=== PATIENT | male | born 1940 | race Caucasian/White ===

== ENCOUNTER 2017-04-25 11:56 | Inpatient (IN) | payer OTHER ==
[~2017-04-25] VITALS: Ht 177.8 cm; Wt 92.6 kg
[~2017-04-25 11:56] MED LIST: 70/30 SC; ALDACTAZIDE 251 TAB PO; AMLODIPINE BESY10 MG PO; ARTIFICIAL TEAR30 M1 OPH; ASPERCREME76.5 GM TP; ASPIRIN81 M1 PO; ATARAX10 MG PO; AUGMENTIN 875 M1 TA1 PO; B12; B12,B-12,B 12500 MCG PO; BENTYL10 MG PO; CALCIPOTRIENE60 GM TP; CAPSAICIN42.5 GM TP; CENTRUM SAW PA160 MG PO; CENTRUM1 TAB PO; CEPACOL SORE T1 EAC1 MM; CIPRO500 MG PO; CLOBETASOL PROP0.05% T; CLOBETASOL PROP15 GM TP; COLACE100 MG PO; COMBIVENT RESPIM4 GM INH; COMBIVENT1 AR1 IH; COMBIVENT1 ARO IH; COUMADIN5 M1 PO; COUMADIN7.5 M1 PO; CUBICIN500 MG IV; DICYCLOMINE HCL10 MG PO; DICYCLOMINE10 MG PO; DILTIAZEM 24HR120 MG PO; ECOTRIN81 MG PO; ELIQUIS5 M1 PO; FERROUS GLUCON325 M1 PO; FLOMAX0.4 MG; FLOMAX0.4 MG PO; FLUTICASON0.05 MG/Ac NAS; HUMALOG100 U/ML SC; HUMULIN 70100 UNIT/1 SC; HUMULIN N100 U/ML SC; HUMULIN N100 UNIT/1 SQ; HYDRALAZINE HC100 MG PO; HYDROCHLOROTHIA50 MG PO; HYDROCODONE BIT1 T11 PO; HYTRIN1 M1 PO; HYTRIN10 MG PO; ISOSORBIDE MON120 MG PO; ISOSORBIDE MONO60 MG PO; K-DUR 2020 MEQ PO; K-DUR20 MEQ PO; K-TAB20 MEQ PO; KETOCONAZOLE21 TP; LASIX40 MG PO; LIPITOR80 MG PO; LISINOPRIL30 MG PO; LISINOPRIL40 MG PO; LOPRESSOR25 MG PO; Lopressor25 MG PO; METFORMIN1000 MG PO; MIRALAX POWDER17 G1 PO; MOTRIN600 MG PO; Micro K10 MEQ PO; NASAL SPRAY30 ML NAS; NORVASC10 MG PO; NORVASC5 MG PO; NOVOLIN 701 UNIT/0.0 SC; NOVOLIN N100 U/ML SC; Nizoral 2%15 GM T; POTASSIUM20 MEQ PO; PRAVASTATIN SOD80 MG PO; PRILOSEC20 MG PO; PROVENTIL0.09 MG/A1 INH; ROSUVASTATIN CA10 MG PO; SAW PALMETTO80 MG PO; TACROLIMUS 0.1% TP; TERAZOSIN HCL10 M1 PO; TOPROL XL50 M1 PO; TRAZADONE HYDR100 MG PO; TYLENOL325 M1 PO; VANCOCIN1000 MG/25 IV; VIBRA-TAB100 M1 PO; VIBRA-TAB100 MG PO; VIBRAMYCIN100 MG PO; VISTARIL25 M1 PO; VITAMIN D2400 IU PO; VITAMIN D32000 UNIT PO; VOLTAREN11 PO; XARE15TA PO; XARE20MG PO; ZESTRIL30 M1 PO; ZESTRIL40 MG PO; ZOLOFT100 MG PO; ZOSYN 3.373.375 GM/5 IV; Zestril,Prinivi40 MG PO; [UNRECOGNIZED DRUG - CODE] PO; eye drops
[2017-04-25 12:00] VITALS: BP 179/74
[2017-04-25 13:05] LABS: BASO % 0.3 % (0.0-1.0); EOS # 0.2 10*3/uL (0.0-0.4); EOS % 2.2 % (1.0-4.0); HEMATOCRIT 36.4 % (42.0-52.0); HEMOGLOBIN 12.2 g/dl (14.0-18.0); LYMPH # 1.5 10*3/uL (1.3-4.4); LYMPH % 14.6 % (27.0-41.0); MEAN CELL VOLUME 83.3 fl (80.0-94.0); MEAN CORPUSCULAR HGB 27.9 pg (27.0-31.0); MEAN CORPUSCULAR HGB CONC 33.5 g/dl (33.0-37.0); MEAN PLATELET VOLUME 11.2 fl (9.6-12.3); MONO # 0.9 10*3/uL (0.1-1.0); MONO % 8.8 % (3.0-9.0); NEUT # 7.8 10*3/uL (2.3-7.9); NEUT % 73.6 % (47.0-73.0); PLATELET COUNT AUTOMATED 143 10*3/uL (130-400); RED BLOOD COUNT 4.37 10*6/uL (4.50-5.90); WHITE BLOOD COUNT 10.6 10*3/uL (4.8-10.8)
[2017-04-25 13:18] LABS: ACT PARTIAL THROMBO TIME 27.3 SECONDS (20.8-31.5); ALBUMIN 3.1 gm/dl (3.1-4.5); ALKALINE PHOSPHATASE 61 U/L (45-117); BUN 17 mg/dl (7-24); CHLORIDE 102 mmol/L (98-107); LIPASE 55 U/L (73-393); SGOT/AST 12 IU/L (3-35); SGPT/ALT 14 U/L (12-78); SODIUM 140 mmol/L (136-145); TOTAL PROTEIN 6.5 gm/dL (6.4-8.2)
[2017-04-25 13:19] LABS: TROPONIN I < 0.015 ng/ml (<0.045)
[2017-04-25 16:04] LABS: BILIRUBIN NEGATIVE (NEGATIVE); BLOOD NEGATIVE (NEGATIVE); CLARITY CLEAR (CLEAR); COLOR YELLOW (YELLOW); GLUCOSE 2+ (NEGATIVE); KETONE TRACE (NEGATIVE); LEUKO ESTERASE NEGATIVE (NEGATIVE); NITRITE NEGATIVE (NEGATIVE); UROBILINOGEN 0.2 E.U./dl (0.2-1.0)
[2017-04-25 16:26] LABS: RBC 0-2 rbc/hpf (0-2); WBC 0-2 wbc/hpf (0-5)
[2017-04-25 20:00] VITALS: BP 121/80
[2017-04-25 20:19] VITALS: BP 169/84
[2017-04-25 20:30] VITALS: BP 196/64
[2017-04-25] MEDS ORDERED: PROSCAR5 M1 PO (21:17)
[2017-04-25] MEDS ORDERED: TAMSULOSIN HCL0.4 MG PO (21:18)
[2017-04-25] MEDS ORDERED: ATARAX,VISTARIL10 MG PO (21:20)
[2017-04-25] MEDS ORDERED: FERROUS SULFAT325 MG PO (21:25)
[2017-04-25] MEDS ORDERED: METFORMIN1000 MG PO (21:28)
[2017-04-25] MEDS ORDERED: TOPROL XL50 M1 PO (22:26)
[2017-04-25] MEDS ORDERED: CARDIZEM120 MG PO (22:26)
[2017-04-26] VITALS (9 sets, daily range): BP systolic 146–180; BP diastolic 51–72
[2017-04-26 07:19] LABS: BASO % 0.4 % (0.0-1.0); EOS # 0.2 10*3/uL (0.0-0.4); EOS % 2.6 % (1.0-4.0); HEMATOCRIT 38.2 % (42.0-52.0); HEMOGLOBIN 12.8 g/dl (14.0-18.0); LYMPH # 1.4 10*3/uL (1.3-4.4); LYMPH % 15.6 % (27.0-41.0); MEAN CELL VOLUME 82.2 fl (80.0-94.0); MEAN CORPUSCULAR HGB 27.5 pg (27.0-31.0); MEAN CORPUSCULAR HGB CONC 33.5 g/dl (33.0-37.0); MEAN PLATELET VOLUME 12.1 fl (9.6-12.3); MONO # 0.9 10*3/uL (0.1-1.0); MONO % 10.3 % (3.0-9.0); NEUT # 6.4 10*3/uL (2.3-7.9); NEUT % 70.7 % (47.0-73.0); PLATELET COUNT AUTOMATED 148 10*3/uL (130-400); RED BLOOD COUNT 4.65 10*6/uL (4.50-5.90); RED CELL DISTRI WIDTH 14.8 % (0-14.5)
[2017-04-26 07:34] LABS: CHLORIDE 98 mmol/L (98-107); POTASSIUM 3.2 mmol/L (3.5-5.1); SODIUM 137 mmol/L (136-145)
[2017-04-26 08:01] LABS: BUN 11 mg/dl (7-24); CHOLESTEROL 135 mg/dL (<200); HDL CHOLESTEROL 39 mg/dl (40-60); LDL CHOLESTEROL 58 mg/dL (9-159); PHOSPHOROUS 2.9 mg/dL (2.5-4.9); THYROID STIM HORMONE (HS) 0.859 uIU/ml (0.358-4.75); TRIGLYCERIDES 192 mg/dl (<150); VLDL CHOLESTEROL 38 mg/dL (6-40)
[2017-04-26 08:38] LABS: VITAMIN D, 25-HYDROXY 33.1 ng/mL (30-100)
[2017-04-26] MEDS ORDERED: BUPROPION HYDR100 MG PO (10:48)
[2017-04-26] MEDS ORDERED: KETOCONAZOLE S120 M1 (10:51)
[2017-04-26] MEDS ORDERED: DIPHENHYDRAMINE50 M1 PO (10:53)
[2017-04-26] MEDS ORDERED: PREDNISONE50 MG PO (10:57)
[2017-04-26] MEDS ORDERED: HUMULIN 70/30 703 M1 SC ×2 (11:00→11:01)
[2017-04-26] MEDS ORDERED: LIDOCAINE5 GM T (11:02)
[2017-04-26] MEDS ORDERED: CAVERJECT IMPU IC (11:06)
[2017-04-27 03:49] VITALS: BP 144/50
[2017-04-27 06:59] LABS: CHLORIDE 99 mmol/L (98-107); SODIUM 136 mmol/L (136-145)
[2017-04-27 07:12] LABS: BUN 22 mg/dl (7-24)
[2017-04-27 07:38] VITALS: BP 120/60
[2017-04-27 12:00] VITALS: BP 124/50
[2017-04-27 16:00] VITALS: BP 151/61
[2017-04-27 20:00] VITALS: BP 164/51
[2017-04-28] VITALS: BP 155/60
[2017-04-28 07:34] LABS: BUN 19 mg/dl (7-24); CHLORIDE 101 mmol/L (98-107); CREATININE 0.94 mg/dL (0.70-1.30); POTASSIUM 3.9 mmol/L (3.5-5.1); SODIUM 137 mmol/L (136-145)
[2017-04-28 08:00] VITALS: BP 167/50
[2017-04-28 12:00] VITALS: BP 151/48
[2017-04-28] MEDS ORDERED: HYDRALAZINE HYD50 MG PO (12:24)
[2017-04-28] MEDS ORDERED: TEST STRIPS1 EACH MC (12:25)
[2017-04-28] MEDS ORDERED: LEVEMIR100 UNIT/1 SC (12:25)
[2017-04-28] MEDS ORDERED: INSULIN SYRING1 EA33 MC (12:25)
[2017-04-28] MEDS ORDERED: Insulin Lispro, Reco SC (12:25)
[2017-04-28] MEDS ORDERED: ACCU-CHEK FAST1 EACH MC (12:25)
[2017-04-28] MEDS ORDERED: BLOOD GLUCOSE1 EAC3 MC (12:27)
[2017-04-28] MEDS ORDERED: INSULIN SYRING1 EAC1 MC (12:59)
== END 2017-04-28 15:05 | disposition home health service (06) | DRG 312 ==
LOC: ED 11:56 → EDHOLD 16:22 → 4E 16:22
PROVIDERS: Emergency Medicine; Internal Medicine; Internal Medicine Hospice and Palliative Medicine
DX: R55 Syncope and collapse (principal); E87.2 Acidosis; E44.0 Moderate protein-calorie malnutrition; E11.65 Type 2 diabetes mellitus with hyperglycemia; I48.0 Paroxysmal atrial fibrillation; D64.9 Anemia, unspecified; I50.32 Chronic diastolic (congestive) heart failure; I11.0 Hypertensive heart disease with heart failure; D72.810 Lymphocytopenia; E55.9 Vitamin D deficiency, unspecified; E66.09 Other obesity due to excess calories; E78.5 Hyperlipidemia, unspecified; E87.6 Hypokalemia; F43.10 Post-traumatic stress disorder, unspecified; I25.10 Atherosclerotic heart disease of native coronary artery without angina pectoris; K21.9 Gastro-esophageal reflux disease without esophagitis; L40.9 Psoriasis, unspecified; M47.812 Spondylosis without myelopathy or radiculopathy, cervical region; R79.82 Elevated C-reactive protein (CRP); J44.9 Chronic obstructive pulmonary disease, unspecified; Z60.2 Problems related to living alone; G47.33 Obstructive sleep apnea (adult) (pediatric); F32.9 Major depressive disorder, single episode, unspecified; E78.1 Pure hyperglyceridemia; Z79.4 Long term (current) use of insulin; W18.39XA Other fall on same level, initial encounter; Y93.89 Activity, other specified; Y92.89 Other specified places as the place of occurrence of the external cause; Y99.8 Other external cause status; Z85.528 Personal history of other malignant neoplasm of kidney; Z98.42 Cataract extraction status, left eye; Z90.5 Acquired absence of kidney; Z98.61 Coronary angioplasty status; Z87.891 Personal history of nicotine dependence; Z82.49 Family history of ischemic heart disease and other diseases of the circulatory system; Z81.8 Family history of other mental and behavioral disorders; Z88.8 Allergy status to other drugs, medicaments and biological substances; Z91.041 Radiographic dye allergy status; Z79.899 Other long term (current) drug therapy; Z79.82 Long term (current) use of aspirin; Z68.29 Body mass index [BMI] 29.0-29.9, adult

== ENCOUNTER 2017-06-30 17:18 | Inpatient (IN) | payer OTHER ==
[~2017-06-30] VITALS: Ht 177.8 cm; Wt 91.4 kg
--- NOTE | ~2017-06-30 | PR ---
[place], [place] PROGRESS NOTE [id number] UNIT #: [id number] ROOM: 507 DOCTOR: LIBIA SCOTT MD BIRTHDATE: [birth year] DOS: 07/02/2017 SUBJECTIVE: The patient feels very well today. He had a good breakfast and good lunch and sitting in a recliner. He has no dizziness or fainting spells, has not had any palpitations either. OBJECTIVE: GENERAL: His complexion is fine. VITAL SIGNS: Pulse is regular, blood pressure 156/78. NECK: JVP is normal. LUNGS: Clear. EXTREMITIES: No edema in lower extremities. IMPRESSION: This patient's Imdur and beta thai were discontinued yesterday and he seems to be feeling just fine. As I mentioned and yesterday, a 30-day Holter monitor would be a good idea to see if any dysrhythmia or severe bradycardia occurs in this gentleman, which may be responsible for his sudden loss of consciousness. I have no new recommendations. LIBIA SCOTT MD CM:PNTRANS [id number] LIBIA SCOTT MD 07/02/171936 interface
--- NOTE | ~2017-06-30 | ST ---
[place], [place] EXERCISE STRESS TEST REPORT [facility] [id number] UNIT #: [id number] ROOM: 507 DOCTOR: ZAID WHARTON [facility] BIRTHDATE: [birth year] DOS: 07/01/2017 LEXISCAN REPORT On 07/01/2017, the patient received Lexiscan 0.4 mg over 10 seconds. Heart rate is 71. No conclusive electrocardiographic changes for myocardial ischemia noted. Isotope was injected. Myocardial perfusion scan to follow. No complication noted. CK MAR MD CM:STRESS:EXERCISE STRESS TEST REPORT [id number] BHAVESH HATFIELD MD [facility]
--- NOTE | ~2017-06-30 | CON ---
[place], [place] REPORT OF CONSULTATION [id number] UNIT #: [id number] ROOM: 507 DOCTOR: LIBIA SCOTT MD BIRTHDATE: [birth year] DOS: 07/01/2017 copy HISTORY OF PRESENT ILLNESS: This is a 77-year-old -[place] man with a history of coronary artery disease. He had a stent deployed many years ago and his echocardiogram has been fine recently. Echocardiogram demonstrated low normal LV systolic function. He has had atrial fibrillation in the past, has chronic diastolic heart failure, diabetes mellitus with resolved diabetic foot ulcer, GERD, essential hypertension, had renal cell carcinoma and surgery for this and has had syncope in the past. The patient was sitting on the toilet seat and I believe he was not straining and as he leaned forward, he just fell to the floor, but did not hurt himself. He did not pass out completely. He sat there for about 10 minutes and got up to go to the living room and called for help. He did not have any palpitations, chest pain, any sense of dizziness, lightheadedness. His vision was fine before he fell. In fact, he had no warning whatsoever. He did not sweat. There was no nausea. When he got up and walked above to the living room, he felt fine. A few weeks ago, he was bringing in his groceries and as he entered the house, he suddenly fell to the floor and had a little skin damage of his forehead. Again, this was very short-lived without any warning and without any palpitations or sweating or nausea. Many weeks ago, he had another fall. The patient lives at home. His had recently. He has not had any chest pain, breathing difficulty, PND, orthopnea, or swelling of the lower extremities. He has not had any headaches, visual problems or hearing problems. No ringing in the ears or spinning sensation. No localized weakness of the extremities. He does not smoke nor does he drink alcoholic beverages. MEDICATIONS: He is on lot of medications at home. He takes medicines for diabetes. He is on amlodipine 10 mg daily, aspirin 81 mg daily, furosemide 40 mg daily, hydralazine 100 mg b.i.d., Imdur 120 at bedtime, lisinopril 40 mg daily, metoprolol 12.5 mg b.i.d., lovastatin 10 mg daily, and potassium chloride. PHYSICAL EXAMINATION: GENERAL: This is a patient who is very pleasant, alert, oriented. He gives a pretty good history. VITAL SIGNS: Pulse is 52 and regular, blood pressure 102/86 and this has been is as high as 180/72. NECK: JVP is normal. AJR is negative. No bruit in the neck. HEART: There is no cardiomegaly. Auscultation reveals no murmurs or rubs. EXTREMITIES: He has good pedal pulses and no edema in the lower extremities. RESPIRATORY: Lungs are clear to percussion and auscultation. LABORATORY DATA: An ECG showed sinus bradycardia, heart rate 52 beats per [place], [place] REPORT OF CONSULTATION NAME: SAGE STALLINGS UNIT #: [id number] ROOM: 507 DOCTOR: LIBIA SCOTT MD BIRTHDATE: [birth year] minute with normal TN and QRS interval. Single PVC was noted. Monitor has shown sinus bradycardia. Chest x-ray demonstrated no abnormality. He had a Lexiscan Cardiolite study performed today, which demonstrated no ischemia and EF of 67%. Troponin I levels have been normal. Comprehensive chemistry profile is pretty decent. IMPRESSION: This patient has had recurrent syncope without any warning. It is rather sudden. I am suspicious of rhythm disorder. He may have severe bradycardia or asystolic for a short time, which is causing his symptoms. He is on a beta thai and heart rate is slow. He is also on several antihypertensive medications which may be contributing to the possibility of orthostatic hypotension and passing out. RECOMMENDATIONS: 1. Discontinue beta thai altogether. 2. Discontinue Imdur 120 as well since no ischemia has been demonstrated on the stress test. I would continue with the amlodipine if blood pressure is low, my recommendation would be to back off hydralazine to some extent. 3. I also recommend a 30-day Holter monitor to see if dysrhythmias are responsible for his symptoms. I thank you on behalf of Dr. Yen for this consult. LIBIA SCOTT MD CM:CONSTR:REPORT OF CONSULTATION 1719 07/01/17 2436 interface GIDEON YEN MD
--- NOTE | ~2017-06-30 | PR ---
[place], [place] PROGRESS NOTE NAME: SAGE STALLINGS [facility] #: [id number] UNIT #: [id number] ROOM: 507 DOCTOR: LIBIA SCOTT MD BIRTHDATE: [birth year] DOS: 07/04/2017 SUBJECTIVE: He has felt well for the last 2 to 3 days. He has walked in the hallways and has not complained of any palpitation, dizziness or weakness. No loss of consciousness. He sleeps well. There has not been any orthopnea or swelling of the legs. His appetite is fine. Mood is good as well. PHYSICAL EXAMINATION: GENERAL: This is a patient who is a very pleasant, alert, oriented. VITAL SIGNS: Pulse is 56 and regular, blood pressure 152/56. NECK: Normal JVP. LUNGS: Clear lungs. EXTREMITIES: No edema in lower extremities. LABORATORY DATA: Monitor shows sinus rhythm with a heart rate of 50 to 60s. IMPRESSION AND PLAN: This patient has mild sinus bradycardia. Beta thai was discontinued and he is asymptomatic and has not had any dizziness or syncopal episodes after being in the hospital. From cardiac standpoint, he may be discharged home. I saw him on behalf of Dr. Yen. LIBIA SCOTT MD CM:PNTRANS [id number] LIBIA SCOTT MD 07/04/17 1227 interface
--- NOTE | ~2017-06-30 | PR ---
[place], [place] PROGRESS NOTE NAME: [facility] [id number] UNIT #: [id number] ROOM: 507 DOCTOR: LIBIA SCOTT MD BIRTHDATE: [birth year] DOS: ADDENDUM I just was informed that this patient had 8-beat ventricular tachycardia. I reviewed the rhythm strips. It is ventricular tachycardia; however, it is irregular and then sinus rhythm resumes. Potassium is 3.0, magnesium is 1.7. He had normal LV systolic function and no ischemia by stress test recently. He should be on chronic potassium therapy and magnesium oxide 400 mg daily has been added as well. LIBIA SCOTT MD CM:PNTRANS [id number] LIBIA SCOTT MD 07/03/17 1516 interface
--- NOTE | ~2017-06-30 | CON ---
[place], [place] REPORT OF CONSULTATION [id number] UNIT #: [id number] ROOM: 507 [facility]: [birth year] DOS: 07/01/2017 CARDIOLOGY CONSULTATION HISTORY OF PRESENT ILLNESS: The patient is a 77-year-old male came in with a history of near syncope and the patient came to the Emergency Room and his echo recently with an EF was 55-60%. Chest x-ray, no acute change. CT scan was unremarkable. Cervical spine shows some degeneration and no acute changes. An intracranial CT of the head was also unremarkable. The patient underwent stress, no significant reversible myocardial ischemia noted and the patient has a previous history of coronary artery disease, but does not appears to be critical and stroke and diastolic dysfunction with congestive heart failure in the past and compensating well now, history of hypertension, has been stable. The patient has history of coronary stenting in the past. PHYSICAL EXAMINATION: VITAL SIGNS: Stable. GENERAL: Alert, not in any acute distress. NECK: No jugular venous distention noted. No carotid bruits. LUNGS: No rales heard. HEART: S1, S2 regular. No gallops. ABDOMEN: Soft. RECTAL AND GENITAL: Deferred unrelated. DIAGNOSES: Underlying coronary artery disease considered and near syncope. Evaluating for any cardiac primary cause for current manifestation and a Lexiscan with Cardiolite evaluate for ischemic heart disease and optimize the medical therapy and optimize the blood pressure. Thank you very much for asking me to see the patient. I will follow the patient. CK MAR MD CM:CONSTR:REPORT OF CONSULTATION 1007 07/02/17 1337 interface
--- NOTE | ~2017-06-30 | PR ---
[place], [place] PROGRESS NOTE NAME: [facility]ALL[facility] [id number] UNIT #: [id number] ROOM: 507 DOCTOR: GIDEON CARDOZA MD BIRTHDATE: [birth year] DOS: 07/05/2017 SUBJECTIVE: The patient is a very well known to me. The patient was seen by Dr. Cox ,who was covering me. The patient's blood pressure was still somewhat elevated to be 170/60. He appears to be comfortable. Blood pressure as mentioned. He felt well for the last 2-3 days. He has walked in the hallway. He denies any complaints of chest pain or palpitations. His appetite is good. REVIEW OF SYSTEMS: A 6-8 systems reviewed unremarkable. OBJECTIVE: GENERAL: Alert and oriented. VITAL SIGNS: Blood pressure is slightly elevated. NECK: Supple. No JVD. LUNGS: Clear. HEART: Sounds are regular. ABDOMEN: Soft. Nontender. NEUROLOGIC: Stable. LABORATORY DATA: Shows hemoglobin 14 and hematocrit 41.2, the last one. Electrolytes are normal done yesterday. Creatinine is 0.7. IMPRESSION: The patient who fell with bradycardia, hypokalemia, hypertension, known coronary artery disease, history of alcohol abuse, paroxysmal atrial fibrillation, and hypertension. RECOMMENDATIONS: To continue the present management. The patient appears to be comfortable. Heart rate is acceptable. The patient is on lisinopril 40 mg daily, hydralazine 100 b.i.d., and also on amlodipine. Continue the present care. Continue the physical therapy. We will follow up. GIDEON CARDOZA MD CM:PNTRANS [id number] [id number] GIDEON CARDOZA MD 07/05/17 0732 interface
--- NOTE | ~2017-06-30 | PR ---
[place], [place] PROGRESS NOTE [id number] UNIT #: [id number] ROOM: 505 DOCTOR: LIBIA SCOTT MD BIRTHDATE: [birth year] DOS: 07/03/2017 He feels well. He has been walking around and has not had any lightheaded, dizziness, has not fainted since admission and has not had any chest pain or palpitations. His appetite is fine. He ate well. He has no generalized aches and pains and feels quite well. PHYSICAL EXAMINATION: GENERAL: This is a patient who is very pleasant, alert. Complexion is fine, he is not diaphoretic. VITAL SIGNS: Temperature is normal, pulse is 56 regular, blood pressure 162/62, previous blood pressure has been mildly elevated. NECK: JVP is normal. No bruit in the neck. CARDIOVASCULAR: Auscultation with no murmurs. Pedal pulses are fine. LUNGS: Clear to auscultation. LABORATORY DATA: Monitor shows normal sinus rhythm with a heart rate in the high 50s. IMPRESSION: The patient had had syncopal episodes. He had bradycardia on admission and beta-thai was discontinued. Heart rate has been fairly steady. He has not had any significant bradycardia. Blood pressure has also been normal. No new recommendations. LIBIA SCOTT MD CM:PNTRANS [id number] [id number] LIBIA SCOTT MD 07/19/17 0839 interface
[~2017-06-30 17:18] MED LIST changes: +ACCU-CHEK FAST1 EACH MC; +ARTIFICIAL TEAR15 M1 OPH; -ARTIFICIAL TEAR30 M1 OPH; +ATARAX,VISTARIL10 MG PO; +BLOOD GLUCOSE1 EAC3 MC; +BUPROPION HYDR100 MG PO; +CARDIZEM120 MG PO; +CAVERJECT IMPU IC; +DIPHENHYDRAMINE50 M1 PO; +FERROUS SULFAT325 MG PO; +HUMULIN 70/30 703 M1 SC; +HYDRALAZINE HYD50 MG PO; +INSULIN SYRING1 EA33 MC; +INSULIN SYRING1 EAC1 MC; +Insulin Lispro, Reco SC; +KETOCONAZOLE S120 M1; +LEVEMIR100 UNIT/1 SC; +LIDOCAINE5 GM T; +PREDNISONE50 MG PO; +PROSCAR5 M1 PO; +TAMSULOSIN HCL0.4 MG PO; +TEST STRIPS1 EACH MC
[2017-06-30 17:22] VITALS: BP 157/75
[2017-06-30 17:48] LABS: BASO % 0.5 % (0.0-1.0); EOS # 0.2 10*3/uL (0.0-0.4); EOS % 2.2 % (1.0-4.0); HEMATOCRIT 41.8 % (42.0-52.0); HEMOGLOBIN 13.9 g/dl (14.0-18.0); LYMPH # 1.9 10*3/uL (1.3-4.4); LYMPH % 22.5 % (27.0-41.0); MEAN CELL VOLUME 85.8 fl (80.0-94.0); MEAN CORPUSCULAR HGB 28.5 pg (27.0-31.0); MEAN CORPUSCULAR HGB CONC 33.3 g/dl (33.0-37.0); MEAN PLATELET VOLUME 11.6 fl (9.6-12.3); NEUT # 5.5 10*3/uL (2.3-7.9); NEUT % 63.3 % (47.0-73.0); PLATELET COUNT AUTOMATED 148 10*3/uL (130-400); RED BLOOD COUNT 4.87 10*6/uL (4.50-5.90); RED CELL DISTRI WIDTH 13.6 % (0-14.5); WHITE BLOOD COUNT 8.6 10*3/uL (4.8-10.8)
[2017-06-30 18:11] LABS: ALBUMIN 3.8 gm/dl (3.1-4.5); ALKALINE PHOSPHATASE 53 U/L (45-117); BUN 15 mg/dl (7-24); CHLORIDE 100 mmol/L (98-107); CREATININE 0.92 mg/dL (0.70-1.30); LIPASE 86 U/L (73-393); POTASSIUM 3.4 mmol/L (3.5-5.1); SGOT/AST 7 IU/L (3-35); SGPT/ALT 16 U/L (12-78); SODIUM 139 mmol/L (136-145); TOTAL PROTEIN 7.3 gm/dL (6.4-8.2)
[2017-06-30 18:15] LABS: TROPONIN I < 0.015 ng/ml (<0.045)
[2017-06-30 18:39] LABS: ACT PARTIAL THROMBO TIME 24.4 SECONDS (20.8-31.5); INTERNATIONAL NORM RATIO 0.9 (2.0-3.5)
[2017-06-30 19:15] VITALS: BP 148/72
[2017-06-30 20:30] VITALS: BP 178/64; BP 180/60
[2017-06-30 21:42] LABS: BILIRUBIN NEGATIVE (NEGATIVE); BLOOD NEGATIVE (NEGATIVE); CLARITY CLEAR (CLEAR); COLOR YELLOW (YELLOW); GLUCOSE NEGATIVE (NEGATIVE); KETONE NEGATIVE (NEGATIVE); LEUKO ESTERASE NEGATIVE (NEGATIVE); NITRITE NEGATIVE (NEGATIVE); PH 6.5 (5.0-9.0); SPECIFIC GRAVITY 1.015 (1.005-1.030); UROBILINOGEN 0.2 E.U./dl (0.2-1.0)
[2017-06-30 21:47] LABS: BACTERIA 1+; EPITHELIAL CELLS 0-2; RBC 0-2 rbc/hpf (0-2); WBC 0-2 wbc/hpf (0-5)
[2017-07-01] VITALS: BP 158/115; BP 158/75
[2017-07-01 06:38] LABS: BASO % 0.2 % (0.0-1.0); EOS # 0.2 10*3/uL (0.0-0.4); EOS % 2.1 % (1.0-4.0); HEMATOCRIT 41.2 % (42.0-52.0); LYMPH # 1.9 10*3/uL (1.3-4.4); LYMPH % 20.9 % (27.0-41.0); MEAN CELL VOLUME 85.5 fl (80.0-94.0); MEAN PLATELET VOLUME 11.5 fl (9.6-12.3); MONO # 0.8 10*3/uL (0.1-1.0); MONO % 9.4 % (3.0-9.0); NEUT # 5.9 10*3/uL (2.3-7.9); NEUT % 66.8 % (47.0-73.0); PLATELET COUNT AUTOMATED 153 10*3/uL (130-400); RED BLOOD COUNT 4.82 10*6/uL (4.50-5.90); RED CELL DISTRI WIDTH 13.4 % (0-14.5); WHITE BLOOD COUNT 8.9 10*3/uL (4.8-10.8)
[2017-07-01 06:43] LABS: ALBUMIN 3.6 gm/dl (3.1-4.5); BUN 10 mg/dl (7-24); CHLORIDE 99 mmol/L (98-107); CREATININE 0.74 mg/dL (0.70-1.30); SGOT/AST 14 IU/L (3-35); SGPT/ALT 14 U/L (12-78); SODIUM 140 mmol/L (136-145)
[2017-07-01 06:45] LABS: ALKALINE PHOSPHATASE 52 U/L (45-117); PHOSPHOROUS 3.2 mg/dL (2.5-4.9)
[2017-07-01 08:00] VITALS: BP 171/80
[2017-07-01 12:00] VITALS: BP 180/72
[2017-07-01 16:00] VITALS: BP 102/86
[2017-07-01 20:00] VITALS: BP 160/60; BP 185/53
[2017-07-02] VITALS: BP 148/52
[2017-07-02 06:53] LABS: ALBUMIN 3.6 gm/dl (3.1-4.5); BUN 13 mg/dl (7-24); CHLORIDE 98 mmol/L (98-107); POTASSIUM 3.3 mmol/L (3.5-5.1); SGOT/AST 14 IU/L (3-35); SODIUM 137 mmol/L (136-145)
[2017-07-02 06:55] LABS: ALKALINE PHOSPHATASE 50 U/L (45-117); CREATININE 0.76 mg/dL (0.70-1.30); SGPT/ALT 13 U/L (12-78); TOTAL PROTEIN 6.9 gm/dL (6.4-8.2)
[2017-07-02 08:00] VITALS: BP 150/64
[2017-07-02 12:00] VITALS: BP 156/54
[2017-07-02 20:00] VITALS: BP 163/60
[2017-07-03 00:34] VITALS: BP 157/58
[2017-07-03 06:15] LABS: ALBUMIN 3.2 gm/dl (3.1-4.5); ALKALINE PHOSPHATASE 55 U/L (45-117); BUN 16 mg/dl (7-24); CHLORIDE 102 mmol/L (98-107); CREATININE 0.79 mg/dL (0.70-1.30); PHOSPHOROUS 3.4 mg/dL (2.5-4.9); POTASSIUM 3.1 mmol/L (3.5-5.1); SGOT/AST 11 IU/L (3-35); SGPT/ALT 14 U/L (12-78); SODIUM 139 mmol/L (136-145); TOTAL PROTEIN 6.6 gm/dL (6.4-8.2)
[2017-07-03 08:00] VITALS: BP 162/62
[2017-07-03 12:00] VITALS: BP 155/58
[2017-07-03 16:00] VITALS: BP 167/77
[2017-07-03 20:15] VITALS: BP 176/74
[2017-07-04] VITALS: BP 145/45
[2017-07-04 06:29] LABS: BUN 15 mg/dl (7-24); CHLORIDE 102 mmol/L (98-107); CREATININE 0.77 mg/dL (0.70-1.30); POTASSIUM 3.7 mmol/L (3.5-5.1); SODIUM 137 mmol/L (136-145)
[2017-07-04 08:00] VITALS: BP 152/56
[2017-07-04 12:00] VITALS: BP 180/57
[2017-07-04 16:00] VITALS: BP 163/65
[2017-07-04 20:00] VITALS: BP 172/60
[2017-07-05] VITALS: BP 17/49
[2017-07-05 08:00] VITALS: BP 158/62
[2017-07-05] MEDS ORDERED: FEROSUL325 MG PO (11:23)
[2017-07-05] MEDS ORDERED: KLOR-CON M1010 ME1 PO (11:23)
[2017-07-05 12:00] VITALS: BP 172/64
== END 2017-07-05 14:39 | DRG 312 ==
LOC: ED 17:18 → EDHOLD 19:12 → 5E 19:12
PROVIDERS: Emergency Medicine; Internal Medicine; Internal Medicine Cardiovascular Disease; Internal Medicine Hospice and Palliative Medicine
PROC: 3E073KZ Introduction of Other Diagnostic Substance into Coronary Artery, Percutaneous Approach (ICD-10-PCS; principal; 2017-07-01)
PROC: 4A02XM4 Measurement of Cardiac Total Activity, External Approach (ICD-10-PCS; principal; 2017-07-01)
DX: R55 Syncope and collapse (principal); I47.2 Ventricular tachycardia; E87.2 Acidosis; E11.65 Type 2 diabetes mellitus with hyperglycemia; I50.32 Chronic diastolic (congestive) heart failure; R00.1 Bradycardia, unspecified; I11.0 Hypertensive heart disease with heart failure; E87.6 Hypokalemia; I48.0 Paroxysmal atrial fibrillation; D64.9 Anemia, unspecified; J44.9 Chronic obstructive pulmonary disease, unspecified; W19.XXXA Unspecified fall, initial encounter; K21.9 Gastro-esophageal reflux disease without esophagitis; L40.9 Psoriasis, unspecified; G47.33 Obstructive sleep apnea (adult) (pediatric); F32.9 Major depressive disorder, single episode, unspecified; D72.810 Lymphocytopenia; I25.10 Atherosclerotic heart disease of native coronary artery without angina pectoris; R79.82 Elevated C-reactive protein (CRP); W18.11XA Fall from or off toilet without subsequent striking against object, initial encounter; R82.71 Bacteriuria; F10.10 Alcohol abuse, uncomplicated; F43.10 Post-traumatic stress disorder, unspecified; E78.5 Hyperlipidemia, unspecified; E53.8 Deficiency of other specified B group vitamins; E55.9 Vitamin D deficiency, unspecified; E66.3 Overweight; Z79.82 Long term (current) use of aspirin; Z79.84 Long term (current) use of oral hypoglycemic drugs; Z79.4 Long term (current) use of insulin; Z98.42 Cataract extraction status, left eye; Z82.49 Family history of ischemic heart disease and other diseases of the circulatory system; Z82.0 Family history of epilepsy and other diseases of the nervous system; Z88.8 Allergy status to other drugs, medicaments and biological substances; Z88.1 Allergy status to other antibiotic agents; Z91.030 Bee allergy status; Z91.041 Radiographic dye allergy status; Z79.899 Other long term (current) drug therapy; Y93.89 Activity, other specified; Y92.091 Bathroom in other non-institutional residence as the place of occurrence of the external cause; Y99.8 Other external cause status

== ENCOUNTER 2017-07-20 10:38 | Inpatient (IN) | payer OTHER ==
[2017-07-20] VITALS (7 sets, daily range): BP systolic 148–182; BP diastolic 58–78
[~2017-07-20] VITALS: Ht 179.1 cm; Wt 90.4 kg
[~2017-07-20 10:38] MED LIST changes: +FEROSUL325 MG PO; +KLOR-CON M1010 ME1 PO
[2017-07-20 11:18] LABS: BASO % 0.3 % (0.0-1.0); EOS # 0.1 10*3/uL (0.0-0.4); EOS % 0.8 % (1.0-4.0); HEMATOCRIT 40.1 % (42.0-52.0); HEMOGLOBIN 13.7 g/dl (14.0-18.0); LYMPH # 1.2 10*3/uL (1.3-4.4); LYMPH % 8.8 % (27.0-41.0); MEAN CELL VOLUME 83.4 fl (80.0-94.0); MEAN CORPUSCULAR HGB 28.5 pg (27.0-31.0); MEAN CORPUSCULAR HGB CONC 34.2 g/dl (33.0-37.0); MEAN PLATELET VOLUME 11.4 fl (9.6-12.3); MONO # 1.5 10*3/uL (0.1-1.0); MONO % 11.3 % (3.0-9.0); NEUT # 10.4 10*3/uL (2.3-7.9); NEUT % 78.3 % (47.0-73.0); PLATELET COUNT AUTOMATED 204 10*3/uL (130-400); RED BLOOD COUNT 4.81 10*6/uL (4.50-5.90); WHITE BLOOD COUNT 13.2 10*3/uL (4.8-10.8)
[2017-07-20 11:26] LABS: ACT PARTIAL THROMBO TIME 26.2 SECONDS (20.8-31.5)
[2017-07-20 11:33] LABS: ALBUMIN 3.4 gm/dl (3.1-4.5); ALKALINE PHOSPHATASE 75 U/L (45-117); BUN 15 mg/dl (7-24); CHLORIDE 95 mmol/L (98-107); CREATININE 1.16 mg/dL (0.70-1.30); POTASSIUM 2.7 mmol/L (3.5-5.1); SGOT/AST 6 IU/L (3-35); SGPT/ALT 12 U/L (12-78); SODIUM 134 mmol/L (136-145); TOTAL PROTEIN 7.5 gm/dL (6.4-8.2)
[2017-07-20 11:42] LABS: TROPONIN I < 0.015 ng/ml (<0.045)
[2017-07-20 11:45] LABS: BILIRUBIN NEGATIVE (NEGATIVE); BLOOD NEGATIVE (NEGATIVE); CLARITY SL CLOUDY (CLEAR); COLOR YELLOW (YELLOW); GLUCOSE 3+ (NEGATIVE); KETONE TRACE (NEGATIVE); LEUKO ESTERASE NEGATIVE (NEGATIVE); NITRITE NEGATIVE (NEGATIVE); PH 5.5 (5.0-9.0); UROBILINOGEN 0.2 E.U./dl (0.2-1.0)
[2017-07-20 11:51] LABS: BACTERIA 1+; WBC 0-2 wbc/hpf (0-5)
[2017-07-20] MEDS ORDERED: HUMALOG100 UNIT/2 SQ (13:40)
[2017-07-21] VITALS: BP 161/58
[2017-07-21 06:04] LABS: BASO % 0.2 % (0.0-1.0); EOS # 0.1 10*3/uL (0.0-0.4); HEMATOCRIT 36.9 % (42.0-52.0); HEMOGLOBIN 12.5 g/dl (14.0-18.0); LYMPH # 2.2 10*3/uL (1.3-4.4); LYMPH % 21.1 % (27.0-41.0); MEAN CELL VOLUME 83.7 fl (80.0-94.0); MEAN CORPUSCULAR HGB 28.3 pg (27.0-31.0); MEAN CORPUSCULAR HGB CONC 33.9 g/dl (33.0-37.0); MEAN PLATELET VOLUME 12.1 fl (9.6-12.3); MONO # 1.3 10*3/uL (0.1-1.0); MONO % 12.5 % (3.0-9.0); NEUT # 6.7 10*3/uL (2.3-7.9); NEUT % 64.7 % (47.0-73.0); PLATELET COUNT AUTOMATED 182 10*3/uL (130-400); RED BLOOD COUNT 4.41 10*6/uL (4.50-5.90); RED CELL DISTRI WIDTH 12.9 % (0-14.5); WHITE BLOOD COUNT 10.3 10*3/uL (4.8-10.8)
[2017-07-21 06:13] LABS: BUN 13 mg/dl (7-24); CHLORIDE 99 mmol/L (98-107); CREATININE 0.74 mg/dL (0.70-1.30); POTASSIUM 2.9 mmol/L (3.5-5.1); SGOT/AST 7 IU/L (3-35); SGPT/ALT 9 U/L (12-78); SODIUM 138 mmol/L (136-145); TOTAL PROTEIN 6.7 gm/dL (6.4-8.2)
[2017-07-21 06:14] LABS: ALKALINE PHOSPHATASE 58 U/L (45-117)
[2017-07-21 08:00] VITALS: BP 150/76
[2017-07-21 12:00] VITALS: BP 168/84
[2017-07-21 16:00] VITALS: BP 160/56
[2017-07-21 20:00] VITALS: BP 162/60
[2017-07-22] VITALS: BP 168/62
[2017-07-22 07:30] LABS: BUN 11 mg/dl (7-24); CHLORIDE 97 mmol/L (98-107); POTASSIUM 2.8 mmol/L (3.5-5.1); SODIUM 136 mmol/L (136-145)
[2017-07-22 07:31] LABS: CREATININE 0.78 mg/dL (0.70-1.30)
[2017-07-22 08:00] VITALS: BP 169/62
[2017-07-22 12:00] VITALS: BP 126/88; BP 135/103
[2017-07-22] MEDS ORDERED: ASPIRIN ADULT L81 M2 PO (12:56)
[2017-07-22] MEDS ORDERED: Sinemet 25 MG-100 MG PO (13:00)
[2017-07-22] MEDS ORDERED: POTASSIUM CHLO20 MEQ PO (13:00)
== END 2017-07-22 14:09 | disposition other institution (70) | DRG 641 ==
LOC: ED 10:38 → EDHOLD 12:29 → 4E 12:47
PROVIDERS: Emergency Medicine; Registered Nurse; Student in an Organized Health Care Education/Training Program
DX: E87.6 Hypokalemia (principal); E11.65 Type 2 diabetes mellitus with hyperglycemia; I48.1 Persistent atrial fibrillation; I50.32 Chronic diastolic (congestive) heart failure; I11.0 Hypertensive heart disease with heart failure; J44.9 Chronic obstructive pulmonary disease, unspecified; I25.10 Atherosclerotic heart disease of native coronary artery without angina pectoris; F32.9 Major depressive disorder, single episode, unspecified; K21.9 Gastro-esophageal reflux disease without esophagitis; E78.5 Hyperlipidemia, unspecified; R29.6 Repeated falls; E53.8 Deficiency of other specified B group vitamins; E66.3 Overweight; E55.9 Vitamin D deficiency, unspecified; G47.33 Obstructive sleep apnea (adult) (pediatric); F43.10 Post-traumatic stress disorder, unspecified; Z79.4 Long term (current) use of insulin; Z79.899 Other long term (current) drug therapy; Z79.82 Long term (current) use of aspirin; Z95.5 Presence of coronary angioplasty implant and graft; Z98.42 Cataract extraction status, left eye; Z90.5 Acquired absence of kidney; Z87.891 Personal history of nicotine dependence; Z68.28 Body mass index [BMI] 28.0-28.9, adult; Z88.8 Allergy status to other drugs, medicaments and biological substances; Z88.1 Allergy status to other antibiotic agents; Z91.030 Bee allergy status; Z91.041 Radiographic dye allergy status; Z82.49 Family history of ischemic heart disease and other diseases of the circulatory system; Z82.0 Family history of epilepsy and other diseases of the nervous system; Z83.3 Family history of diabetes mellitus; Z82.3 Family history of stroke